=== PATIENT | female | born 1965 | race African-American/Black ===

== ENCOUNTER 2017-03-12 20:54 | Emergency (ER) | payer MEDICAID ==
[~2017-03-12] VITALS: Ht 167.6 cm; Wt 85.0 kg
[~2017-03-12 20:54] MED LIST: CYCL-259 PO; OMEP20TA62 PO; QUET400T4 PO; VENTOLIN
[2017-03-12 21:16] VITALS: BP 156/82
[2017-03-12] MEDS ORDERED: HYDROcodone/APAP 5/325 TABLET PO STA (21:52)
[2017-03-12] MEDS ORDERED: HYDROcodone/APAP 5/325 TABLET ONE (21:53)
== END 2017-03-12 23:18 | disposition home or self-care (01) ==
LOC: ED 23:04
DX: S80.01XA Contusion of right knee, initial encounter (principal); J45.909 Unspecified asthma, uncomplicated; W19.XXXA Unspecified fall, initial encounter; Y93.89 Activity, other specified; Y92.009 Unspecified place in unspecified non-institutional (private) residence as the place of occurrence of the external cause; Y99.8 Other external cause status
CPT/HCPCS: 99284

== ENCOUNTER 2017-05-18 11:53 | Emergency (ER) | payer MEDICAID ==
[~2017-05-18] VITALS: Ht 167.6 cm; Wt 88.0 kg
[2017-05-18 11:56] VITALS: BP 150/95
[2017-05-18] MEDS ORDERED: OXYcodone/APAP 5/325MG TABLET ONE (12:56)
[2017-05-18] MEDS ORDERED: OXYcodone/APAP 5/325MG TABLET PO ONE (13:00)
== END 2017-05-18 13:22 | disposition home or self-care (01) ==
LOC: ED 13:16
DX: M25.561 Pain in right knee (principal); F31.9 Bipolar disorder, unspecified; J45.909 Unspecified asthma, uncomplicated
CPT/HCPCS: 29505; 99284